=== PATIENT | male | born 1945 | race Caucasian/White ===

== ENCOUNTER → 2019-03-02 06:46 | Outpatient (CLI) | payer MEDICARE, SELFPAY ==
--- NOTE | 2019-03-02 06:51 | CT_ITS ---
STUDY: CT CHEST WITHOUT CONTRAST REASON FOR EXAM: Male, 73 years old. Chest pain on exertion RADIATION DOSAGE (If Supplied By Facility): CTDIvol = ( 7.34 ) mGy, DLP = ( 313.75 ) mGycm TECHNIQUE: Transaxial imaging was performed without the administration of intravenous contrast material. Individualized dose optimization techniques were used for this CT. COMPARISON: None. FINDINGS: There is mild biapical pleural parenchymal scarring. There is tree-in-bud nodularity in the posterior right upper lobe with regions of mucous impaction. Bilateral lower lobe peripheral reticular thickening. There are scattered bilateral calcified granulomas. There are scattered 2-3 mm pulmonary nodules.. There is no demonstrated pleural abnormality. Normal heart and pericardium. There are calcified carinal and AP window lymph nodes. There are prominent mediastinal lymph nodes which are not pathologically enlarged. Normal hilar regions. Normal unenhanced pulmonary arteries. There are mild calcifications of the aortic arch and aortic annulus. There are multi-level degenerative changes of the thoracic spine. The gallbladder is only partially visualized but appears markedly thick walled and irregular. Limited images of the upper abdomen are otherwise unremarkable. CT/Chest without Contrast IMPRESSION: 1. There is tree-in-bud opacities in the posterior right upper lobe which may represent infectious or inflammatory process. No focal pulmonary consolidation. There are regions of mucous impaction noted. 2. Scattered bilateral 2 to 3 mm pulmonary nodules. 3. The gallbladder is only partially visualized but appears markedly thick walled and irregular. right upper quadrant ultrasound is recommended further characterization. Electronically Signed: Gilsusy Arriaga, at 15:35 EDT Tel , Service support ,
== END ==
PROVIDERS: Family Provider Family Medicine; PCP Family Medicine; Referring Provider Internal Medicine Pulmonary Disease; Visit Provider Internal Medicine Pulmonary Disease
DX: R07.9 Chest pain, unspecified (principal)
CPT/HCPCS: 71250

== ENCOUNTER 2024-04-15 20:08 | Emergency (ER) | payer MEDICARE, SELFPAY ==
[2024-04-15 20:09] VITALS: BP 108/68; PULSE 60; RESP 15; TEMP 36.4; O2SAT 100; BMI 22.2
--- NOTE | 2024-04-15 20:45 | EDS_ITS ---
HPI History of Present Illness Chief Complaint: Cellulitis Informant: patient and family Narrative Narrative: Presents here with family for her noted swelling redness right lower extremity last couple days. 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 Tetanus updated then. He had swelling the stylets worked his way down. He is now down to his feet. He has no fevers or chills no history of diabetes. No history of PE or DVT. Denies chest pains or shortness of breath. Prior similar symptoms: No PFSH PFSH Allergy/AdvReac Type Severity Reaction Status Date / Time No Known Allergies Allergy Verified 04/15/24 20:13 Social History Smoking Status: Never smoker ROS ROS ED Constitutional Constitutional ED: Denies chills, fever(s) or sweats Eyes Eyes: Denies change in vision ENT ENT ED: Denies dysphagia or sore throat Cardiovascular Cardiovascular: Reports leg edema; Denies chest pain, palpitations or racing heartbeat Respiratory/Chest Respiratory/Chest: Denies cough, dyspnea or dyspnea on exertion Gastrointestinal Gastrointestinal: Denies abdominal pain, diarrhea, nausea or vomiting Genitourinary Genitourinary ED: Denies dysuria, hematuria or urinary frequency Musculoskeletal Musculoskeletal: Denies back pain, extremity pain or neck pain Integumentary Denies rash or wounds Neurologic Neurologic: Denies headache(s), paresthesias or weakness EXAM Physical Exam Const Vital Signs: 04/15/24 20:09 Temperature 97.6 F L Temperature Source Temporal Pulse Rate 60 Respiratory Rate 15 Blood Pressure 108/68 Blood Pressure Mean 81 Pulse Ox 100 Oxygen Delivery Method Room Air Positive well nourished and well developed General Appearance ED: well developed and NAD HEENT Reports moist mucous membranes normocephalic and atraumatic Eyes EOMs intact bilaterally and conjunctivae normal General Eye ED: Yes normal appearance of both eyes Neck no lymphadenopathy and supple General: Negative for tenderness Chest Wall Chest: Negative for tenderness Resp normal respiratory effort and normal air movement Effort and Inspection: symmetric chest movement; Negative for respiratory distress Cardio regular rate, regular rhythm and no murmurs Peripheral Pulses: pulses 2+ throughout GI normal to inspection, nondistended, normoactive bowel sounds and non-tender Palpation: Negative for guarding or rebound tenderness present Back/Spine no CVA tenderness and no thoracic nor lumbar tenderness Extremity normal to inspection Extremity Narrative: Right lower extremity, there is pitting edema from the mid lower leg down to his foot. Redness to the foot dorsally that blanches. Posterior thigh had a healed scar, no erythema in that area. General Extremety ED: Yes edema; Negative for tenderness General Extremity: edema Neuro oriented x3 and no sensory deficits noted Sensorium / Orientation: awake and alert Skin no rashes or lesions noted and no wounds MDM MDM MDM Narrative Medical decision making narrative: Interventions / MDM: Differential diagnosis: Peripheral edema Diagnosis considered but do not suspect: Cellulitis, however blanching of skin likely venous stasis.DVT with ultrasound pending outpatient My EKG interpretation: N/A Imaging independently reviewed and interpreted by myself: N/A External documents reviewed: N/A Test considered but not ordered:N/A ED course: Vital stable nontoxic. With patient's injury and history reporting edema moving from the thigh down his leg. Likely venous stasis from injury at this time. Has blanching of the erythema throughout his whole foot therefore likely venous stasis and not cellulitis. No current ultrasound available. Lower suspicion for this. There is no calf pain or thigh pain. He has good pulses. Discussed elevation at night and monitoring symptoms. Develops redness that does not magi or fevers and chills he will return to ED for reevaluation. Outpatient ultrasound ordered for further evaluation however lower suspicion for DVT. He will follow-up with his PCP. All questions were answered. Re-evaluation: stable Disposition discussed with patient/family/significant other: Patient and family Case discussed with consulting clinician: N/A This note was generated with [employer] dictation software. It may contain incorrect words, spelling, and punctuation that were not noted in checking the note before signing. Discharge Plan Triage Chief Complaint: Cellulitis ED Provider: Moises Vazquez Dx/Rx/DC Orders Clinical Impression: Edema of right lower extremity due to peripheral venous insufficiency Instructions: ED Peripheral Edema, Unilateral Other Ambulatory Orders: Venous Duplex US, Unilateral (Stat) Facility: [facility] - Location: [facility] Ordered By: Dr. Moises Vazquez Primary Care Provider: Rolando Lara Referrals: Rolando Lara MD [Primary Care Provider] - Activity Restrictions/Additional Instructions: You have unilateral edema, this is from venous stasis from your injury. There is no clinical infection. Return to radial, for the ultrasound that is ordered of your right lower extremity. You develop fevers or chills or redness that does not go away with pressing on it, return to the ED for reevaluation. Otherwise follow-up with your doctor. Print Language: Ghanaian Disposition Disposition: Home, Self Care Discharge Date/Time: 04/15/24 20:55
== END 2024-04-15 20:55 | disposition home or self-care (01) ==
LOC: ED 20:48
PROVIDERS: Emergency Provider Emergency Medicine; PCP Family Medicine; Visit Provider Emergency Medicine
DX: I87.2 Venous insufficiency (chronic) (peripheral) (principal)
CPT/HCPCS: 99282

== ENCOUNTER → 2024-04-16 | Outpatient (CLI) | payer MEDICARE, SELFPAY ==
--- NOTE | 2024-04-16 10:42 | VDLE_ITS ---
Reason For Study: swelling RIGHT LEFT GSV is normal. CFV is compressible, spontaneous, phasic, CFV is compressible, spontaneous, phasic, competent, and demonstrates normal competent and demonstrates normal augmentation. augmentation. FV is compressible, spontaneous, phasic, competent and demonstrates normal augmentation. POP V is compressible, spontaneous, phasic, competent and demonstrates normal augmentation. T/P Trunk is compressible. PTV is compressible. RT PerV is compressible. Procedure This is a venous duplex using B-mode, color flow and spectral Doppler. Exam performed in department. The exam was diagnostic. VL/Venous Duplex US, Unilateral Interpretation Summary Deep veins of the right lower extremity are patent and compressible segmentally . There is no evidence of right lower extremity deep vein thrombosis. The right great sap[place] us vein appears patent and compressible segmentally. Ordering Physician: Moises Vazquez Performed By: Evan Robles RVT
== END | disposition home or self-care (01) ==
LOC: US 10:42
PROVIDERS: PCP Family Medicine; Visit Provider Emergency Medicine
DX: M79.89 Other specified soft tissue disorders (principal)
CPT/HCPCS: 93971